=== PATIENT | female | born 1960 | race Caucasian/White ===

== ENCOUNTER → 2021-04-02 | Outpatient (CLI) | payer OTHER ==
[~2021-04-02] MED LIST: RESCUE INHALER INH; TUMS ULTRA400 MG PO
== END ==
LOC: CT 02-21 09:00
DX: F17.210 Nicotine dependence, cigarettes, uncomplicated (principal)
CPT/HCPCS: 71271

== ENCOUNTER → 2021-05-15 | Outpatient (CLI) | payer OTHER | LOC: MRI 12:28 | DX: G37.9 Demyelinating disease of central nervous system, unspecified (principal); R25.2 Cramp and spasm; R13.10 Dysphagia, unspecified; H81.399 Other peripheral vertigo, unspecified ear; H81.20 Vestibular neuronitis, unspecified ear; H93.19 Tinnitus, unspecified ear; J32.2 Chronic ethmoidal sinusitis | CPT/HCPCS: 70553; A9577 ==